=== PATIENT | male | born 1930 | race Hispanic/Latino ===

== ENCOUNTER 2017-04-24 17:13 | Inpatient (IN) | payer MEDICARE, BC ==
[2017-04-24 17:14] VITALS: BMI 39.3
[2017-04-24 18:37] LABS: BASO # 0.02 K/mm3 (0.0-2.0); BASO % 0.2 % (0.0-3.0); EOS # 0.6 (0.0-0.7); EOS % 5.5 % (1.5-5.0); GRAN # 6.56 (1.4-6.5); GRAN % 61.8 % (50.0-68.0); HEMOGLOBIN 13.6 g/dL (14.0-18.0); LYMPH # 2.5 (1.2-3.4); LYMPH % 23.4 % (22.0-35.0); MEAN CELL VOLUME 94.9 fl (80.0-105.0); MEAN CORPUSCULAR HEMOGLOBIN 31.8 pg (25.0-35.0); MEAN CORPUSCULAR HGB CONC 33.5 g/dl (31.0-37.0); MEAN PLATELET VOLUME 9.6 fl (7.0-11.0); MONO % 9.1 % (1.0-6.0); RBC 4.28 10^6/uL (3.5-6.1); WHITE BLOOD COUNT 10.6 10^3/ul (4.5-11.0)
[2017-04-24 18:46] LABS: ALB/GLOB RATIO 1.2 (1.1-1.8); ALBUMIN 3.9 g/dL (3.0-4.8); ALT/SGPT 27 U/L (7-56); AST/SGOT 24 U/L (17-59); BLOOD UREA NITROGEN 20 mg/dL (7-21); CALCIUM 9.7 mg/dL (8.4-10.5); GFR AFRICAN-AMERICAN > 60; GFR NON-AFRICAN AMERICAN > 60; MAGNESIUM 2.1 mg/dL (1.7-2.2)
[2017-04-24 18:51] LABS: INR 1.01 (0.93-1.08); PARTIAL THROMBOPLASTIN TIME 26.6 Seconds (25.1-36.5); PROTHROMBIN TIME 11.5 SECONDS (9.4-12.5)
--- NOTE | 2017-04-24 18:55 | ED PDOC ---
Arrival/HPI - General Chief Complaint: Lower Extremity Problem/Injury Time Seen by Provider: 04/24/17 17:38 Historian: Patient, Family - History of Present Illness Narrative History of Present Illness (Text): 04/24/17 18:45 86yo male with PMHx of COPD and edema present with complaint of b/l LE edema .The son and daughter by the bedside report worsening lower extremity edema for months. The son states patient was given diuretic by the PMD 6months ago, but stopped taking it after a week. also report urinary hesitancy yesterday, but patient is able to urinate today. Patient denies cough, SOB, chest pain, nausea , abdominal pain, diaphoresis, calf pain, any other complaint. Past Medical History - Provider Review Nursing Documentation Reviewed: Yes - Infectious Disease Hx of Infectious Diseases: None - Pulmonary Hx Chronic Obstructive Pulmonary Disease (COPD): Yes - Musculoskeletal/Rheumatological Hx Arthritis: Yes - Psychiatric Hx Psychophysiologic Disorder: No Hx Substance Use: No - Surgical History Hx Orthopedic Surgery: Yes (left hip) - Anesthesia Hx Anesthesia: Yes Hx Anesthesia Reactions: No Family/Social History - Physician Review Nursing Documentation Reviewed: Yes Family/Social History: Unknown Family HX Smoking Status: Never Smoked Hx Alcohol Use: No Hx Substance Use: No Allergies/Home Meds Allergies/Adverse Reactions: Allergies No Known Allergies Allergy (Verified 04/24/17 17:30) Home Medications: Home Meds Medication Instructions Recorded Confirmed No Known Home Med 01/25/15 04/24/17 Review of Systems - Physician Review All systems were reviewed & negative as marked: Yes - Review of Systems Constitutional: Normal Eyes: Normal ENT: Normal Respiratory: Normal Cardiovascular: Edema. absent: Chest Pain, Palpitations, Calf Pain, GAMBOA Gastrointestinal: Normal Genitourinary Male: Normal Musculoskeletal: Normal Skin: Normal Neurological: Normal Endocrine: Normal Hemo/Lymphatic: Normal Psychiatric: Normal Physical Exam Vital Signs Reviewed: Yes Vital Signs Temp Pulse Resp BP Pulse Ox 04/24/17 20:19 142/80 04/24/17 20:11 89 18 142/80 96 04/24/17 17:22 99 F 89 18 143/78 97 Temperature: Afebrile Blood Pressure: Normal Pulse: Regular Respiratory Rate: Normal Appearance: Positive for: Well-Appearing, Non-Toxic, Comfortable Pain Distress: None Mental Status: Positive for: Alert and Oriented X 3 - Systems Exam Head: Present: Atraumatic, Normocephalic Pupils: Present: PERRL Extroacular Muscles: Present: EOMI Conjunctiva: Present: Normal Mouth: Present: Moist Mucous Membranes Neck: Present: Normal Range of Motion Respiratory/Chest: Present: Clear to Auscultation, Good Air Exchange. No: Respiratory Distress, Accessory Muscle Use Cardiovascular: Present: Regular Rate and Rhythm, Normal S1, S2. No: Murmurs Abdomen: Present: Normal Bowel Sounds. No: Tenderness, Distention, Peritoneal Signs Back: Present: Normal Inspection Upper Extremity: Present: Normal Inspection. No: Cyanosis, Edema Lower Extremity: Present: Edema (4+bipedal edema) Neurological: Present: GCS=15, CN II-XII Intact, Speech Normal Skin: Present: Warm, Dry, Normal Color. No: Rashes Psychiatric: Present: Alert, Oriented x 3, Normal Insight, Normal Concentration Medical Decision Making ED Course and Treatment: 04/24/17 20:31 PT in ED for stated history. PT was hemodynmically stable in ED. However signs of cellulitis was noted. Pt's family also mentioned worsening LE edema. Lab was unremarkable Pt is however non complaint and needs admission for IV abx EKG NSR @88bpm Per US tech preliminary result was negative for DVT b/l Case was DW Dr. Caraballo and she accepts pt for admission - Lab Interpretations Lab Results: 04/24/17 18:00 04/24/17 18:00 Lab Results 04/24/17 18:00: PT 11.5, INR 1.01, APTT 26.6 04/24/17 18:00: Sodium 142, Potassium 3.9, Chloride 106, Carbon Dioxide 26, Anion Gap 15, BUN 20, Creatinine 1.0, Est GFR ( Amer) > 60, Est GFR (Non- Af Amer) > 60, Random Glucose 94, Calcium 9.7, Magnesium 2.1, Total Bilirubin 0.6, AST 24, ALT 27, Alkaline Phosphatase 75, Lactate Dehydrogenase 461, Total Creatine Kinase 46, Troponin I < 0.01, NT-Pro-B Natriuret Pep 159, Total Protein 7.1, Albumin 3.9, Globulin 3.2, Albumin/Globulin Ratio 1.2 04/24/17 18:00: Urine Color Yellow, Urine Appearance Slight-cloudy, Urine pH 6.0 , Ur Specific [place] >= 1.030, Urine Protein 30 H, Urine Glucose (UA) Negative , Urine Ketones Trace H, Urine Blood Moderate H, Urine Nitrate Negative, Urine Bilirubin Negative, Urine Urobilinogen 0.2, Ur Leukocyte Esterase Negative, Urine RBC 1 - 3, Urine WBC Negative, Ur Epithelial Cells None, Urine Other Mucus 04/24/17 18:00: WBC 10.6 D, RBC 4.28, Hgb 13.6 L, Hct 40.6 L, MCV 94.9, MCH 31.8, MCHC 33.5, RDW 14.0, Plt Count 224, MPV 9.6, Gran % 61.8, Lymph % (Auto) 23.4, Mayes % (Auto) 9.1 H, Eos % (Auto) 5.5 H, Baso % (Auto) 0.2, Gran # 6.56 H , Lymph # (Auto) 2.5, Mayes # (Auto) 1.0 H, Eos # (Auto) 0.6, Baso # (Auto) 0.02 - RAD Interpretation Radiology Orders: 04/24/17 17:38 DUPLEX LOWER EXTRM VEIN BILAT [US] Stat 04/24/17 18:15 CHEST TWO VIEWS (PA/LAT) [RAD] Stat - Medication Orders Current Medication Orders: Discontinued Medications Furosemide (Lasix) 40 mg IVP STAT STA Stop: 04/24/17 19:41 Last Admin: 04/24/17 20:19 Dose: 40 mg MAR Blood Pressure Document 04/24/17 20:19 SF (Rec: 04/24/17 20:19 [id number]) Blood Pressure Blood Pressure (100/60-150/90 mm Hg) 142/80 IVP Administration Document 04/24/17 20:19 SF (Rec: 04/24/17 20:19 SF [id number]) Charges for Administration # of IVP Administrations 1 Piperacillin Sod/Tazobactam Sod (Zosyn 3.375 In Ns 100ml) 100 mls @ 200 mls/hr IVPB STAT STA PRN Reason: Protocol Stop: 04/24/17 20:07 Last Admin: 04/24/17 20:13 Dose: 200 mls/hr eMAR Start Stop Document 04/24/17 20:13 SF (Rec: 04/24/17 20:19 [id number]) Intravenous Solution Start Date 04/24/17 Start Time 20:18 End Date 04/24/17 End time 20:48 Total Infusion Time 30 Disposition/Present on Arrival - Present on Arrival Any Indicators Present on Arrival: No History of DVT/PE: No History of Uncontrolled Diabetes: No Urinary Catheter: No History of Decub. Ulcer: No History Surgical Site Infection Following: None - Disposition Have Diagnosis and Disposition been Completed?: Yes Diagnosis: Cellulitis, Edema Disposition: HOSPITALIZED Disposition Time: 19:40 Patient Problems: Current Active Problems Problem Status Onset Cellulitis Acute Edema Acute Condition: FAIR
[2017-04-24 18:58] LABS: B-TYPE NATRIURETIC PEPTIDE 159 pg/mL (0-450); TROPONIN I < 0.01 ng/mL
--- NOTE | 2017-04-24 19:08 | US ---
HISTORY: Leg pain and swelling. Evaluate for DVT PHYSICIAN(S): Ruben Brothers MD. TECHNIQUE: Duplex sonography and color-flow Doppler with graded compression were used to evaluate the deep venous systems of both lower extremities. The exam is somewhat limited by edema. FINDINGS: The visualized deep venous systems of both lower extremities are sonographically normal and compressible. Normal wave forms and augmentation are seen. There is no sonographic evidence for deep venous thrombosis in the visualized segments of both lower extremities. IMPRESSION: No sonographic evidence for deep venous thrombosis in the visualized segments of both lower extremities.
[2017-04-24 19:11] LABS: URINE BILIRUBIN NEGATIVE (NEGATIVE); URINE BLOOD MODERATE (NEGATIVE); URINE GLUCOSE (UA) NEGATIVE (NEGATIVE); URINE LEUKOCYTE ESTERASE NEGATIVE Leu/uL (NEGATIVE); URINE NITRATE NEGATIVE (NEGATIVE); URINE PROTEIN 30 mg/dL (<30 mg/dL); URINE UROBILINOGEN 0.2 E.U./dL (<1 E.U./dL)
[2017-04-24 19:16] LABS: URINE APPEARANCE SLIGHT-CLOUDY (CLEAR); URINE COLOR YELLOW (YELLOW)
[2017-04-24] MEDS ORDERED: Piperacillin/Tazobact 3.375 gm 100 ML IVPB STA (19:38)
[2017-04-24 19:45] LABS: URINE WBC NEGATIVE /hpf (0-6)
[2017-04-24] MEDS: Vancomycin 1gm in NS 250ml 1 GM/250 ML BAG IVPB SCH (22:18)
[2017-04-25 05:08] VITALS: RESP 20
--- NOTE | 2017-04-25 07:21 | HP ---
HISTORY OF PRESENT ILLNESS: The patient is an 86-year-old brought in by the family because of increasing bilateral leg swelling. According to family, he always has leg swelling. This is going on for a couple of months. He went to primary care doctor who gave water pill, but he has not been very compliant. He never went back to the doctor again. Recently, they noted legs are more swollen and red. They brought to emergency room for further evaluation. There is no history of fever or chills. No history of cough or congestion. No chest pain, no shortness of breath. No nausea or vomiting. No diarrhea. PAST MEDICAL HISTORY: Significant for: 1. COPD. 2. History of generalized osteoarthritis. 3. Some difficulty walking. PAST SURGICAL HISTORY: Significant for left hip replacement. ALLERGIES: HE IS NOT ALLERGIC TO ANY MEDICATION. MEDICATIONS AT HOME: He used to be on diuretic, but he stopped taking on his own. REVIEW OF SYSTEMS: Significant for generalized weakness, generalized aches and pain, and bilateral leg swelling and redness. PHYSICAL EXAMINATION GENERAL: He is awake, alert and oriented, able to communicate. VITAL SIGNS: He is afebrile, pulse 89, respirations 18, blood pressure 142/80. LUNGS: Bilateral good airflow. No rhonchi or crackle. HEART: S1 and S2 audible. ABDOMEN: Soft, obese, nontender. No rebound. No guarding. NEUROLOGIC: The patient is awake and alert, able to communicate. EXTREMITIES: Bilateral leg, +2 edema with erythema. LABORATORY DATA: WBC is 10.6, hemoglobin 13.6, hematocrit 40.6, platelet 224. PT 11.5, INR 1.01, PTT 36.6. Chemistry: Sodium 142, potassium 3.9, chloride 106, CO2 of 26, BUN 20, creatinine 1.0. Blood sugar . LFTs are within normal limits. Troponin is 0.01. Urine shows moderate blood, negative leukocytes, positive protein. Bilateral leg Doppler, there is no sonographic evidence of DVT. He had echocardiogram done in 2014 that showed mild concentric LVH. ASSESSMENT: 1. Bilateral leg edema and bilateral leg cellulitis. 2. History of chronic obstructive pulmonary disease. 3. Hypertension. 4. Hyperlipidemia. PLAN: We will start the patient on diuretic, start him on antibiotic, and start him on DVT prophylaxis. We will follow up CBC and CMP in a.m. Wallace Caraballo MD
[2017-04-25 07:25] LABS: ALB/GLOB RATIO 1.2 (1.1-1.8); ALBUMIN 3.3 g/dL (3.0-4.8); ALT/SGPT 28 U/L (7-56); AST/SGOT 20 U/L (17-59); BLOOD UREA NITROGEN 20 mg/dL (7-21); GFR AFRICAN-AMERICAN > 60; GFR NON-AFRICAN AMERICAN > 60; URIC ACID 4.4 mg/dL (3.5-8.5)
[2017-04-25 07:40] LABS: FREE T4 0.88 ng/dL (0.78-2.19)
--- NOTE | 2017-04-25 08:12 | RAD ---
HISTORY: COMPARISON: 07/24/2016. TECHNIQUE: Chest PA and lateral FINDINGS: LINES AND TUBES: None. LUNG AND PLEURA: The lungs are well inflated and clear. There is left basilar scarring. HEART AND MEDIASTINUM: The heart is not enlarged. The hilar and mediastinal contours are within normal limits. SKELETAL STRUCTURES: The bony structures are within normal limits for the patient's age. VISUALIZED UPPER ABDOMEN: Normal. OTHER FINDINGS: None. IMPRESSION: No active pulmonary disease.
[2017-04-25] MEDS: Enoxaparin 30 mg Syringe SC SCH (09:52)
[2017-04-25] MEDS: Vancomycin 1gm in NS 250ml 1 GM/250 ML BAG IVPB SCH ×2 (10:05→21:11)
--- NOTE | 2017-04-25 10:10 | CARD ---
APPROVED REPORT EKG Measurement Heart [id number] <Conclusion> Normal sinus rhythm with sinus arrhythmia PVC. PAC.
[2017-04-25] MEDS: cefTRIAXone 1 gm 1 GM/100 ML BAG IVPB SCH (10:22)
[2017-04-25] MEDS: metOLazone 2.5 MG TAB PO SCH (14:19)
--- NOTE | 2017-04-25 14:20 | PN ---
DATE: SUBJECTIVE: The patient is 86 years old, seen and examined, very pleasant, not in any distress, has bilateral leg swelling. He has a rash on his left schaffer, not itchy. No nausea or vomiting. No diarrhea. PHYSICAL EXAMINATION: VITAL SIGNS: He is afebrile, pulse 84, respiration 20, blood pressure 145/73. LUNGS: Bilateral good airflow. No rhonchi or crackle. HEART: S1, S2 audible. ABDOMEN: Soft, nontender. No rebound. Obese. No hepatosplenomegaly. NEUROLOGIC: The patient is awake and alert, able to communicate. LABORATORY DATA: TSH is 4.76. Otherwise, sodium is 144, potassium 4.1, chloride 107, CO2 of 29, BUN 20, creatinine 1.1, blood sugar of 90. LFTs are within normal limits. Urinalysis is unremarkable. ASSESSMENT: 1. Bilateral leg cellulitis. 2. Bilateral leg edema, bilateral leg Doppler negative for deep venous thrombosis. PLAN: We will get echocardiogram to see LV function. Continue him on IV diuretics. Continue him on antibiotics. We will follow up his electrolyte in a.m. Wallace Caraballo MD
[2017-04-26 08:48] LABS: ALB/GLOB RATIO 1.2 (1.1-1.8); ALBUMIN 3.4 g/dL (3.0-4.8); ALT/SGPT 30 U/L (7-56); AST/SGOT 22 U/L (17-59); BLOOD UREA NITROGEN 23 mg/dL (7-21); CALCIUM 9.3 mg/dL (8.4-10.5); GFR AFRICAN-AMERICAN > 60; GFR NON-AFRICAN AMERICAN > 60
[2017-04-26] MEDS: cefTRIAXone 1 gm 1 GM/100 ML BAG IVPB SCH (09:24)
[2017-04-26] MEDS: metOLazone 2.5 MG TAB PO SCH (09:24)
[2017-04-26] MEDS: Enoxaparin 30 mg Syringe SC SCH (09:25)
[2017-04-26] MEDS: Vancomycin 1gm in NS 250ml 1 GM/250 ML BAG IVPB SCH ×2 (09:25→22:03)
[2017-04-26] MEDS: Potassium Chloride 20 mEq ER Tab PO SCH (13:23)
--- NOTE | 2017-04-26 15:22 | PN ---
DATE: SUBJECTIVE: The patient is 86 years old seen and examined, lying in bed, seems to be comfortable. No chest pain, no shortness of breath. No nausea, vomiting, or diarrhea. OBJECTIVE: VITAL SIGNS: He is afebrile, pulse 88, respirations 20, and blood pressure 129/74. LUNGS: Bilateral good air flow. No rhonchi or crackle. HEART: S1 and S2 audible. ABDOMEN: Soft, obese, and nontender. No rebound, no guarding. NEUROLOGIC: The patient is awake and alert, able to communicate, ambulatory. LABORATORY DATA: Sodium 143, potassium 3.2, chloride 102, CO2 of 33. BUN 23, creatinine 1.1. Blood sugar of 99. TSH is 4.76. Echocardiogram is pending. Bilateral leg Doppler is unremarkable. ASSESSMENT: 1. Bilateral leg cellulitis. 2. Morbid obesity. 3. Hypertension. 4. Hypothyroidism. PLAN: We will continue the patient on IV diuretics. We will continue on antibiotics and apply Stefano bandage. Keep his leg elevated and start him on Synthroid and follow up his electrolytes. Potassium has been supplemented. We will follow up this patient in the a.m. Wallace Caraballo MD
--- NOTE | 2017-04-26 16:27 | CARD ---
APPROVED REPORT EXAM: Two-dimensional and M-mode echocardiogram with Doppler and color Doppler. INDICATION LVH Mitral Valve MV E Dcvuocda34.5cm/sMV A Raxqtvid686.0cm/sE/A ratio0.5 TDI Lateral E' Peak V7.80cm/sMedial E' Peak V8.38cm/sE/Lateral E'6.7 E/Medial E'6.3 LEFT VENTRICLE The left ventricle is normal size. There is mild concentric left ventricular hypertrophy. The left ventricular function is normal.EF-55% There is normal LV segmental wall motion. Transmitral Doppler flow pattern is Grade III-reversible restrictive diastolic dysfunction. No left ventricle thrombus noted on this study. There is no ventricular septal defect visualized. There is no left ventricular aneurysm. There is no mass noted in the left ventricle. RIGHT VENTRICLE The right ventricle is normal size. There is normal right ventricular wall thickness. The right ventricular systolic function is normal. ATRIA The left atrium is mildly dilated. The right atrium size is normal. The interatrial septum is intact with no evidence for an atrial septal defect. AORTIC VALVE The aortic valve is not well visualized. MITRAL VALVE The mitral valve is thickened but opens well. Mitral regurgitation is trace. There is no mitral valve stenosis. There is no evidence of mitral valve prolapse. TRICUSPID VALVE The tricuspid valve leaflets are thickened , but open well. There is trace tricuspid regurgitation. There is no tricuspid valve stenosis. There is no tricuspid valve prolapse or vegetation. PULMONIC VALVE The pulmonic valve is not well visualized. GREAT VESSELS The aortic root is not well visualized. The ascending aorta is not well seen. The pulmonary is not well visualized. The IVC was not visualized. PERICARDIAL EFFUSION There is no pleural effusion. There is no pericardial effusion. <Conclusion> TDS, poor sonic Window, pt wassupine at the time of study. The left ventricular function is normal.EF-55% The aortic valve is not well visualized. Mitral regurgitation is trace. There is trace tricuspid regurgitation.
[2017-04-27] MEDS: Levothyroxine 25 MCG TAB PO SCH (06:15)
[2017-04-27 07:00] LABS: BASO # 0.02 K/mm3 (0.0-2.0); BASO % 0.3 % (0.0-3.0); EOS # 0.5 (0.0-0.7); EOS % 6.6 % (1.5-5.0); GRAN # 3.76 (1.4-6.5); GRAN % 54.1 % (50.0-68.0); HEMOGLOBIN 11.9 g/dL (14.0-18.0); LYMPH % 29.3 % (22.0-35.0); MEAN CELL VOLUME 94.1 fl (80.0-105.0); MEAN CORPUSCULAR HEMOGLOBIN 30.6 pg (25.0-35.0); MEAN CORPUSCULAR HGB CONC 32.5 g/dl (31.0-37.0); MEAN PLATELET VOLUME 9.8 fl (7.0-11.0); MONO # 0.7 (0.1-0.6); MONO % 9.7 % (1.0-6.0); RBC 3.89 10^6/uL (3.5-6.1); RED CELL DISTRIBUTION WIDTH 13.9 % (11.5-14.5); WHITE BLOOD COUNT 6.9 10^3/ul (4.5-11.0)
[2017-04-27 07:08] LABS: ALB/GLOB RATIO 1.2 (1.1-1.8); ALBUMIN 3.2 g/dL (3.0-4.8); ALT/SGPT 32 U/L (7-56); AST/SGOT 21 U/L (17-59); BLOOD UREA NITROGEN 23 mg/dL (7-21); GFR AFRICAN-AMERICAN > 60; GFR NON-AFRICAN AMERICAN > 60
[2017-04-27] MEDS: Potassium Chloride 20 mEq ER Tab PO SCH (08:36)
[2017-04-27] MEDS: Enoxaparin 30 mg Syringe SC SCH (10:42)
[2017-04-27] MEDS: Vancomycin 1gm in NS 250ml 1 GM/250 ML BAG IVPB SCH ×2 (10:43→21:13)
[2017-04-27] MEDS: metOLazone 2.5 MG TAB PO SCH (10:44)
[2017-04-27] MEDS: cefTRIAXone 1 gm 1 GM/100 ML BAG IVPB SCH (10:45)
--- NOTE | 2017-04-27 15:51 | PN ---
DATE: SUBJECTIVE: The patient is 86 years old, seen and examined, lying in bed, seems to be comfortable. No nausea or vomiting. No diarrhea. Eating and tolerating. PHYSICAL EXAMINATION: VITAL SIGNS: He is afebrile, pulse 83, respirations 20, blood pressure 131/67. LUNGS: Bilateral fair airflow. No rhonchi or crackle. HEART: S1 and S2 audible. ABDOMEN: Soft. Nontender. Obese. No hepatosplenomegaly. NEUROLOGIC: He is awake, alert, oriented, able to communicate, ambulatory. LABORATORY EXAM: His sodium 142, potassium 3.4, chloride 103, CO2 of 31, BUN 23, creatinine 1.0, blood sugar of 94. LFTs are within normal limit. TSH is 4.76. ASSESSMENT: 1. Bilateral leg edema. 2. Morbid obesity. 3. Hypothyroidism. PLAN: We will continue the patient on diuretic. Continue to place FRANKIE bandage. Continue Rocephin and levothyroxine. We will reevaluate the patient in the a.m. Wallace Caraballo MD
[2017-04-28] MEDS: Levothyroxine 25 MCG TAB PO SCH (06:05)
[2017-04-28 08:04] VITALS: BP 130/74; PULSE 88; TEMP 98.8; O2SAT 97
[2017-04-28] MEDS: Potassium Chloride 20 mEq ER Tab PO SCH (08:15)
[2017-04-28] MEDS: metOLazone 2.5 MG TAB PO SCH (09:39)
[2017-04-28] MEDS: Enoxaparin 30 mg Syringe SC SCH (09:40)
[2017-04-28] MEDS: cefTRIAXone 1 gm 1 GM/100 ML BAG IVPB SCH (09:40)
[2017-04-28] MEDS: Vancomycin 1gm in NS 250ml 1 GM/250 ML BAG IVPB SCH (09:42)
[2017-04-28] MEDS ORDERED: Influenza Vaccine 60 mcg/0.5 mL SYR (4YR UP) IM ONE (12:49)
[2017-04-28] MEDS ORDERED: Pneumococcal 23-Valent Vaccine IM ONE (12:51)
--- NOTE | 2017-04-29 18:14 | DS ---
HOSPITAL COURSE: Patient is 86 years old who came in with bilateral leg swelling, right schaffer rash. Mild shortness of breath when walking. He was admitted for bilateral leg cellulitis. Had echocardiogram done, unremarkable. He had been on IV antibiotics and Lasix with some response. PHYSICAL EXAMINATION GENERAL: Today, he is awake, alert, oriented, communicative. VITAL SIGNS: He is afebrile. Pulse , respirations 20, blood pressure 130/74. LUNGS: Bilateral good airflow. No rhonchi or crackle. HEART: S1 and S2 audible. ABDOMEN: Soft, obese, nontender. No rebound. No guarding. NEUROLOGIC: He is awake, alert, oriented, communicative. LABORATORY DATA: There is no new lab available today. ASSESSMENT 1. Bilateral leg cellulitis, improving. 2. Bilateral leg edema. 3. Hypothyroidism. 4. Hypertension. PLAN: Patient is being transferred to TCU where he will receive physical therapy. We will continue his IV antibiotics and IV diuretic. We will follow up with his chemistry intermittently. Wallace Caraballo MD
== END 2017-04-28 14:35 | DRG 603 ==
LOC: ED 17:13 → ERH 19:39 → 5RNO 04-25 01:53
PROVIDERS: ADMIT Internal Medicine; ATTEND Internal Medicine
PROC: 3E0234Z Introduction of Serum, Toxoid and Vaccine into Muscle, Percutaneous Approach (ICD-10-PCS; principal; 2017-04-28)
DX: L03.115 Cellulitis of right lower limb (principal); E66.01 Morbid (severe) obesity due to excess calories; J44.9 Chronic obstructive pulmonary disease, unspecified; E03.9 Hypothyroidism, unspecified; E78.5 Hyperlipidemia, unspecified; L03.116 Cellulitis of left lower limb; I10 Essential (primary) hypertension; M15.9 Polyosteoarthritis, unspecified; Z96.642 Presence of left artificial hip joint; Z23 Encounter for immunization; Z68.39 Body mass index [BMI] 39.0-39.9, adult

== ENCOUNTER 2017-04-28 14:44 | Inpatient (IN) | payer OTHER, BC ==
[2017-04-28 15:50] VITALS: BMI 38.8
[2017-04-28] MEDS: Vancomycin 1gm in NS 250ml 1 GM/250 ML BAG IVPB SCH (17:53)
[2017-04-29] MEDS: cefTRIAXone 1 gm 1 GM/100 ML BAG IVPB SCH (05:05)
[2017-04-29] MEDS: Levothyroxine 25 MCG TAB PO SCH (05:06)
[2017-04-29] MEDS: Vancomycin 1gm in NS 250ml 1 GM/250 ML BAG IVPB SCH ×2 (05:06→17:29)
[2017-04-29 07:43] LABS: ALB/GLOB RATIO 1.2 (1.1-1.8); ALBUMIN 3.8 g/dL (3.0-4.8); ALT/SGPT 38 U/L (7-56); AST/SGOT 30 U/L (17-59); BLOOD UREA NITROGEN 33 mg/dL (7-21); CALCIUM 9.6 mg/dL (8.4-10.5); GFR AFRICAN-AMERICAN > 60; GFR NON-AFRICAN AMERICAN 58
[2017-04-29] MEDS: Potassium Chloride 20 mEq ER Tab PO SCH (08:08)
[2017-04-29] MEDS: metOLazone 2.5 MG TAB PO SCH (09:44)
[2017-04-29] MEDS ORDERED: Enoxaparin 30 mg Syringe SC SCH (10:00)
--- NOTE | 2017-04-29 12:07 | CP.PCM.CON ---
<Baldev Amado - Last Filed: 04/29/17 13:50> History of Present Illness - History of Present Illness History of Present Illness: Podiatry Consult Note- Dr. Tucker 86 y.o male with hx of LE swelling was consulted for lower extremity edema and cellulitis. Patient is seen resting comfortably in bed, in NAD, and AA0x3. Lower extremity FRANKIE compression is seen- c/d/i with no strikethrough. Patient reports that about a week ago he noted legs swelling in both legs. He reports the the swelling was a gradual process. At the moment, patient reports there is no pain. He denies acute overnight events. Patient denies n/v/sob/cp/chills or f. Denies calf pain. PMH: denies any, LE swelling PSH: left total hip replacement SH: denies smoking, drinking or illicit drug use ALL: NKDA MEDS: see medication list FH: unknown Past Patient History - Infectious Disease Hx of Infectious Diseases: None - Past Social History Smoking Status: Never Smoked - PULMONARY Hx Chronic Obstructive Pulmonary Disease (COPD): Yes - MUSCULOSKELETAL/RHEUMATOLOGICAL Hx Arthritis: Yes - PSYCHIATRIC Hx Psychophysiologic Disorder: No Hx Substance Use: No - SURGICAL HISTORY Hx Orthopedic Surgery: Yes (left hip surgery) - ANESTHESIA Hx Anesthesia: Yes Hx Anesthesia Reactions: No Meds Allergies/Adverse Reactions: Allergies Allergy/AdvReac Type Severity Reaction Status Date / Time No Known Allergies Allergy Verified 04/28/17 16:46 - Medications Medications: Current Medications Enoxaparin Sodium (Lovenox) 30 mg SC DAILY ASHELY PRN Reason: Protocol Last Admin: 04/29/17 09:44 Dose: 30 mg Fluocinonide (Lidex 0.05% Cream) 0 gm TOP BID ASHELY PRN Reason: Protocol Last Admin: 04/29/17 09:43 Dose: 1 applic Furosemide (Lasix) 40 mg IVP 1000,1800 ASHELY PRN Reason: Protocol Last Admin: 04/29/17 09:48 Dose: 40 mg Ceftriaxone Sodium (Rocephin 1 Gram Ivpb) 1 gm in 100 mls @ 100 mls/hr IVPB 0600 ASHELY PRN Reason: Protocol Last Admin: 04/29/17 05:05 Dose: 100 mls/hr Vancomycin HCl (Vancomycin 1gm) 1 gm in 250 mls @ 167 mls/hr IVPB 0600,1800 ASHELY PRN Reason: Protocol Last Admin: 04/29/17 05:06 Dose: 167 mls/hr Levothyroxine Sodium (Synthroid) 25 mcg PO 0600 ASHELY PRN Reason: Protocol Last Admin: 04/29/17 05:06 Dose: 25 mcg Metolazone (Zaroxolyn) 2.5 mg PO DAILY ASHELY PRN Reason: Protocol Last Admin: 04/29/17 09:44 Dose: 2.5 mg Potassium Chloride (K-Dur 20 Meq Er Tab) 20 meq PO 0800 ASHELY PRN Reason: Protocol Last Admin: 04/29/17 08:08 Dose: 20 meq Physical Exam - Constitutional Appears: Well, Non-toxic, No Acute Distress - Extremities Exam Extremities exam: Negative for: calf tenderness Additional comments: Vasc: DP and PT palpable, LE pitting edema 3+, temperature is WNL warm to cool from proximal knees to distal toes, CFT < 3 seconds to digits bilaterally Ortho: pain and tenderness with palpation to the entire LE, MM is 5/5 in all four compartments: dorsiflexion, inversion, eversion, and plantarflexion, no calf tenderness of palpation Neuro: protective and gross sensation intact Derm: Mild erythema noted to the entire LE bilaterally, red hyperpigmentation noted to the R anterior leg secondary to abrasion 40 years ago, no open ulcerationed noted to the bilaterally LE, drainage or weeping noted to the LE - Neurological Exam Neurological exam: Alert, Oriented x3 - Psychiatric Exam Psychiatric exam: Normal Affect, Normal Mood Results - Vital Signs Recent Vital Signs: Last Vital Signs Temp 98.1 F 04/28/17 17:40 Pulse 78 04/28/17 17:40 Resp 18 04/28/17 17:40 BP 131/89 04/29/17 09:48 Pulse Ox 96 04/28/17 17:40 - Labs Result Diagrams: 04/29/17 06:30 Labs: Laboratory Results - last 24 hr 04/29/17 06:30 Sodium 143 Potassium 3.3 L Chloride 96 L Carbon Dioxide 39 H Anion Gap 11 BUN 33 H Creatinine 1.2 Est GFR ( Amer) > 60 Est GFR (Non-Af Amer) 58 Random Glucose 102 Calcium 9.6 Total Bilirubin 0.5 AST 30 ALT 38 Alkaline Phosphatase 67 Total Protein 7.1 Albumin 3.8 Globulin 3.3 Albumin/Globulin Ratio 1.2 Assessment & Plan - Assessment and Plan (Free Text) Assessment: 86 y.o male with hx of LE swelling was consulted for lower extremity edema and cellulitis. Plan: -Patient examined and evaluated -Vitals, labs, chart reviewed- 6.9 on 04/27/17 absent leukocytosis and afebrile -Discussed plan in detail with attending Dr. Tucker -LE cleansed with saline solution, pat dry with gauze, and compression with FRANKIE -c/w iv abx per primary -Podiatry will continue to follow while in house -Thank you for allowing us to take part of patient's care <Tez Tucker - Last Filed: 04/29/17 16:22> Meds - Medications Medications: Current Medications Enoxaparin Sodium (Lovenox) 30 mg SC DAILY ASHELY PRN Reason: Protocol Last Admin: 04/29/17 09:44 Dose: 30 mg Fluocinonide (Lidex 0.05% Cream) 0 gm TOP BID ASHELY PRN Reason: Protocol Last Admin: 04/29/17 09:43 Dose: 1 applic Furosemide (Lasix) 40 mg IVP 1000,1800 ASHELY PRN Reason: Protocol Last Admin: 04/29/17 09:48 Dose: 40 mg Ceftriaxone Sodium (Rocephin 1 Gram Ivpb) 1 gm in 100 mls @ 100 mls/hr IVPB 0600 ASHELY PRN Reason: Protocol Last Admin: 04/29/17 05:05 Dose: 100 mls/hr Vancomycin HCl (Vancomycin 1gm) 1 gm in 250 mls @ 167 mls/hr IVPB 0600,1800 ASHELY PRN Reason: Protocol Last Admin: 04/29/17 05:06 Dose: 167 mls/hr Levothyroxine Sodium (Synthroid) 25 mcg PO 0600 ASHELY PRN Reason: Protocol Last Admin: 04/29/17 05:06 Dose: 25 mcg Metolazone (Zaroxolyn) 2.5 mg PO DAILY ASHELY PRN Reason: Protocol Last Admin: 04/29/17 09:44 Dose: 2.5 mg Potassium Chloride (K-Dur 20 Meq Er Tab) 20 meq PO 0800 ASHELY PRN Reason: Protocol Last Admin: 04/29/17 08:08 Dose: 20 meq Results - Vital Signs Recent Vital Signs: Last Vital Signs Temp 98.1 F 04/28/17 17:40 Pulse 78 04/28/17 17:40 Resp 18 04/28/17 17:40 BP 131/89 04/29/17 09:48 Pulse Ox 96 04/28/17 17:40 - Labs Result Diagrams: 04/29/17 06:30 Labs: Laboratory Results - last 24 hr 04/29/17 06:30 Sodium 143 Potassium 3.3 L Chloride 96 L Carbon Dioxide 39 H Anion Gap 11 BUN 33 H Creatinine 1.2 Est GFR ( Amer) > 60 Est GFR (Non-Af Amer) 58 Random Glucose 102 Calcium 9.6 Total Bilirubin 0.5 AST 30 ALT 38 Alkaline Phosphatase 67 Total Protein 7.1 Albumin 3.8 Globulin 3.3 Albumin/Globulin Ratio 1.2 Attending/Attestation - Attestation I have personally seen and examined this patient.: Yes I have fully participated in the care of the patient.: Yes I have reviewed all pertinent clinical information: Yes
--- NOTE | 2017-04-29 20:53 | HP ---
HISTORY OF PRESENT ILLNESS: The patient is 86 years old, seen and examined. He came in initially with bilateral leg swelling, right leg rash, has been on IV antibiotic and IV diuretic, seems to be doing well. He has been having difficulty walking, so he was transferred to TCU for rehab. PAST MEDICAL HISTORY: He has no significant past medical history except for hypothyroidism and borderline hypertension. ALLERGIES: NOT ALLERGIC TO ANY MEDICATION. MEDICATIONS AT HOME: He was not talking any medicine at home. PHYSICAL EXAMINATION GENERAL: He is awake, alert, oriented, communicative. VITAL SIGNS: He is afebrile, pulse 70, respiration 18, blood pressure 131/89. LUNGS: Bilateral good airflow. No rhonchi or crackle. HEART: S1, S2 audible. ABDOMEN: Soft, obese, nontender. No rebound. No guarding. NEUROLOGIC: He is awake, alert, oriented, able to communicate. LABORATORY DATA: There is no new lab available today. ASSESSMENT: 1. Obesity. 2. Bilateral leg edema. 3. Bilateral leg cellulitis. 4. Hypothyroidism. PLAN: MAR reviewed. We will continue the patient on current medication. We will follow up electrolyte . Wallace Caraballo MD
[2017-04-30] MEDS: Enoxaparin 30 mg Syringe SC SCH (05:24)
[2017-04-30] MEDS: cefTRIAXone 1 gm 1 GM/100 ML BAG IVPB SCH (05:24)
[2017-04-30] MEDS: Vancomycin 1gm in NS 250ml 1 GM/250 ML BAG IVPB SCH (05:25)
[2017-04-30] MEDS: Levothyroxine 25 MCG TAB PO SCH (05:25)
[2017-04-30] MEDS: Potassium Chloride 20 mEq ER Tab PO SCH (08:32)
[2017-04-30] MEDS: metOLazone 2.5 MG TAB PO SCH (10:51)
--- NOTE | 2017-04-30 13:05 | PN ---
DATE: SUBJECTIVE: Patient is 86-year-old, seen and examined, sitting in chair, seems to be comfortable. No nausea, vomiting. No diarrhea. OBJECTIVE: VITAL SIGNS: Patient is afebrile, pulse 97, respirations 20, blood pressure 126/73. LUNGS: Bilateral good airflow. No rhonchi or crackle. HEART: S1 and S2 audible. No murmur. ABDOMEN: Soft, obese, nontender. No rebound, no guarding. NEUROLOGICAL: Patient is awake, alert, oriented, able to communicate. EXTREMITIES: Bilateral leg +1 edema. LABORATORY DATA: Sodium 143, potassium 3.3, chloride 96, CO2 39, BUN 33, creatinine 1.2. ASSESSMENT: 1. Bilateral leg cellulitis, seems to be improving. 2. Bilateral leg edema. 3. Hypothyroidism. 4. Morbid obesity. PLAN: Continue patient on current antibiotics. Continue on diuretics. Encourage physical therapy. Continue on DVT prophylaxis. Wallace Caraballo MD
[2017-04-30] MEDS: Cefpodoxime (Vantin) 100 mg Tab PO SCH (21:15)
[2017-05-01] MEDS: Levothyroxine 25 MCG TAB PO SCH (06:04)
[2017-05-01] MEDS: Enoxaparin 30 mg Syringe SC SCH (06:04)
[2017-05-01] MEDS: Potassium Chloride 20 mEq ER Tab PO SCH (09:18)
[2017-05-01] MEDS: metOLazone 2.5 MG TAB PO SCH (09:19)
[2017-05-01] MEDS: Cefpodoxime (Vantin) 100 mg Tab PO SCH ×2 (09:19→21:24)
[2017-05-01] MEDS ORDERED: Cefpodoxime (Vantin) 100 mg Tab PO ONE (13:46)
--- NOTE | 2017-05-01 16:23 | CP.PCM.PN ---
Subjective - Date & Time of Evaluation Date of Evaluation: 05/01/17 Time of Evaluation: 16:20 - Subjective Subjective: Podiatry Consult Note- Dr. Buenrostro 86 y.o male with hx of LE swelling was consulted for lower extremity edema and cellulitis. Patient is seen resting comfortably in bed, in NAD, and AA0x3. Lower extremity FRANKIE compression is seen- c/d/i with no strikethrough. Patient denies n/v/sob/cp/chills or f. Patient has no pedal complaints at this time Objective - Vital Signs/Intake and Output Vital Signs (last 24 hours): Temp Pulse Resp BP Pulse Ox 98.2 F 95 H 18 135/72 94 L 05/01/17 11:41 05/01/17 11:41 05/01/17 11:41 05/01/17 11:41 05/01/17 11:41 - Medications Medications: Current Medications Cefpodoxime Proxetil (Vantin) 100 mg PO Q12 ASHELY PRN Reason: Protocol Last Admin: 05/01/17 09:19 Dose: 100 mg Enoxaparin Sodium (Lovenox) 30 mg SC 0600 ASHELY PRN Reason: Protocol Last Admin: 05/01/17 06:04 Dose: 30 mg Fluocinonide (Lidex 0.05% Cream) 0 gm TOP BID ASHELY PRN Reason: Protocol Last Admin: 05/01/17 09:19 Dose: 1 applic Furosemide (Lasix) 40 mg PO BID ASHELY PRN Reason: Protocol Last Admin: 05/01/17 09:18 Dose: 40 mg Levothyroxine Sodium (Synthroid) 25 mcg PO 0600 ASHELY PRN Reason: Protocol Last Admin: 05/01/17 06:04 Dose: 25 mcg Metolazone (Zaroxolyn) 2.5 mg PO DAILY ASHELY PRN Reason: Protocol Last Admin: 05/01/17 09:19 Dose: 2.5 mg Potassium Chloride (K-Dur 20 Meq Er Tab) 20 meq PO 0800 ASHELY PRN Reason: Protocol Last Admin: 05/01/17 09:18 Dose: 20 meq - Labs Labs: 04/29/17 06:30 - Constitutional Appears: Well, Non-toxic, No Acute Distress - Extremities Exam Extremities Exam: absent: Calf Tenderness Additional comments: Vasc: DP and PT palpable, LE pitting edema 3+, temperature is WNL warm to cool from proximal knees to distal toes, CFT < 3 seconds to digits bilaterally Ortho: pain and tenderness with palpation to the entire LE, MM is 5/5 in all four compartments: dorsiflexion, inversion, eversion, and plantarflexion, no calf tenderness of palpation Neuro: protective and gross sensation intact Derm: Mild erythema noted to the entire LE bilaterally, red hyperpigmentation noted to the R anterior leg secondary to abrasion 40 years ago, no open ulcerationed noted to the bilaterally LE, drainage or weeping noted to the LE - Psychiatric Exam Psychiatric exam: Normal Affect, Normal Mood Assessment and Plan - Assessment and Plan (Free Text) Assessment: 86 y.o male with hx of LE swelling with lower extremity edema and cellulitis- resolving Plan: -Patient examined and evaluated -Vitals, labs, chart reviewed-leukocytosis and afebrile -Discussed plan in detail with attending Dr. Buenrostro -LE cleansed with saline solution, pat dry with gauze, and compression with FRANKIE -c/w iv abx per primary -Patient instructed to keep legs elevate while in bed with 2-3 pillows and while in chair to keep LE up. -Podiatry will continue to follow while in house -Thank you for allowing us to take part of patient's care
--- NOTE | 2017-05-01 22:22 | PN ---
DATE: SUBJECTIVE: The patient is an 86-year-old, seen and examined, sitting in chair, seems to be comfortable. No nausea or vomiting. PHYSICAL EXAMINATION: VITAL SIGNS: Pulse 95, respiration 18, blood pressure 135/72. LUNGS: Bilateral good airflow. No rhonchi or crackle. HEART: S1 and S2 audible. ABDOMEN: Soft, nontender, obese. No hepatosplenomegaly. NEUROLOGIC: The patient is awake and alert, able to communicate. EXTREMITIES: Bilateral leg, +2 edema. LABORATORY DATA: There is no new lab available today. ASSESSMENT: 1. Bilateral leg edema. 2. cellulitis. 3. Hypertension. 4. Hypothyroidism. 5. Morbid obesity. PLAN: I will order for CBC and CMP for the morning. MARCEL stocking still pending, they are trying to get his size and that is not available yet. Encourage ambulation. We will follow up the patient. Wallace Caraballo MD
[2017-05-02] MEDS: Enoxaparin 30 mg Syringe SC SCH (06:06)
[2017-05-02] MEDS: Levothyroxine 25 MCG TAB PO SCH (06:06)
[2017-05-02 06:20] LABS: BASO # 0.03 K/mm3 (0.0-2.0); BASO % 0.4 % (0.0-3.0); EOS # 0.7 (0.0-0.7); EOS % 9.1 % (1.5-5.0); GRAN # 4.06 (1.4-6.5); HEMOGLOBIN 11.6 g/dL (14.0-18.0); LYMPH # 1.7 (1.2-3.4); LYMPH % 22.9 % (22.0-35.0); MEAN CELL VOLUME 93.4 fl (80.0-105.0); MEAN CORPUSCULAR HEMOGLOBIN 30.4 pg (25.0-35.0); MEAN CORPUSCULAR HGB CONC 32.6 g/dl (31.0-37.0); MEAN PLATELET VOLUME 9.9 fl (7.0-11.0); MONO % 13.6 % (1.0-6.0); RBC 3.81 10^6/uL (3.5-6.1); RED CELL DISTRIBUTION WIDTH 13.6 % (11.5-14.5); WHITE BLOOD COUNT 7.5 10^3/ul (4.5-11.0)
[2017-05-02 07:13] LABS: ALB/GLOB RATIO 1.2 (1.1-1.8); ALBUMIN 3.4 g/dL (3.0-4.8)
[2017-05-02] MEDS: Cefpodoxime (Vantin) 100 mg Tab PO SCH (09:20)
[2017-05-02] MEDS: Potassium Chloride 20 mEq ER Tab PO SCH (09:20)
[2017-05-02] MEDS: metOLazone 2.5 MG TAB PO SCH (09:21)
[2017-05-02] MEDS ORDERED: Potassium Chloride 20 mEq/15 ml LIQ UD PO STA (10:57)
[2017-05-03] MEDS: Enoxaparin 30 mg Syringe SC SCH (06:35)
[2017-05-03] MEDS: Levothyroxine 25 MCG TAB PO SCH (06:35)
[2017-05-03 07:31] LABS: ALB/GLOB RATIO 1.2 (1.1-1.8); ALBUMIN 3.7 g/dL (3.0-4.8); ALT/SGPT 46 U/L (7-56); AST/SGOT 32 U/L (17-59); BLOOD UREA NITROGEN 35 mg/dL (7-21); CALCIUM 9.5 mg/dL (8.4-10.5); GFR AFRICAN-AMERICAN > 60; GFR NON-AFRICAN AMERICAN 58
[2017-05-03] MEDS: Potassium Chloride 20 mEq ER Tab PO SCH (08:13)
--- NOTE | 2017-05-03 09:43 | CP.PCM.PN ---
<Raymundo Benito - Last Filed: 05/03/17 09:39> Subjective - Date & Time of Evaluation Date of Evaluation: 05/03/17 Time of Evaluation: 09:40 - Subjective Subjective: Podiatry Consult Note- Dr. Tucker/Dr. Buenrostro 86 y.o male with hx of LE swelling was consulted for lower extremity edema and cellulitis. Patient is seen resting comfortably in bed, in NAD, and AA0x3. Lower extremity FRANKIE compression is seen- c/d/i with no strikethrough. Patient denies n/v/sob/cp/chills or f. Patient has no pedal complaints at this time Objective - Vital Signs/Intake and Output Vital Signs (last 24 hours): Temp Pulse Resp BP Pulse Ox 98.4 F 62 18 120/71 96 05/02/17 16:33 05/02/17 16:33 05/02/17 16:33 05/02/17 16:33 05/02/17 16:33 - Medications Medications: Current Medications Enoxaparin Sodium (Lovenox) 30 mg SC 0600 ASHELY PRN Reason: Protocol Last Admin: 05/03/17 06:35 Dose: 30 mg Fluocinonide (Lidex 0.05% Cream) 0 gm TOP BID ASHELY PRN Reason: Protocol Last Admin: 05/02/17 17:43 Dose: 1 applic Furosemide (Lasix) 40 mg PO DAILY ASHELY PRN Reason: Protocol Levothyroxine Sodium (Synthroid) 25 mcg PO 0600 ASHELY PRN Reason: Protocol Last Admin: 05/03/17 06:35 Dose: 25 mcg Metolazone (Zaroxolyn) 2.5 mg PO DAILY ASHELY PRN Reason: Protocol Last Admin: 05/02/17 09:21 Dose: 2.5 mg Potassium Chloride (K-Dur 20 Meq Er Tab) 20 meq PO 0800 ASHELY PRN Reason: Protocol Last Admin: 05/03/17 08:13 Dose: 20 meq - Labs Labs: 05/02/17 06:10 05/03/17 06:30 - Constitutional Appears: Well, Non-toxic, No Acute Distress - Extremities Exam Additional comments: Vasc: DP and PT palpable, LE pitting edema 3+, temperature is WNL warm to cool from proximal knees to distal toes, CFT < 3 seconds to digits bilaterally Ortho: pain and tenderness with palpation to the entire LE, MM is 5/5 in all four compartments: dorsiflexion, inversion, eversion, and plantarflexion, no calf tenderness of palpation Neuro: protective and gross sensation intact Derm: Mild erythema noted to the entire LE bilaterally, red hyperpigmentation noted to the R anterior leg secondary to abrasion 40 years ago, no open ulceration noted to the bilaterally LE, drainage or weeping noted to the LE - Neurological Exam Neurological Exam: Alert, Awake, Oriented x3 - Psychiatric Exam Psychiatric exam: Normal Affect, Normal Mood Assessment and Plan - Assessment and Plan (Free Text) Assessment: 86 y.o male with hx of LE swelling with lower extremity edema and cellulitis- resolving Plan: -Patient examined and evaluated at bedside with attending Dr. Tucker -Vitals, labs, chart reviewed-leukocytosis and afebrile -LE cleansed with saline solution, pat dry with gauze, and compression with FRANKIE -c/w iv abx per primary -Patient instructed to keep legs elevate while in bed with 2-3 pillows and while in chair to keep LE up. -Podiatry will continue to follow while in house <Tez Tucker - Last Filed: 05/03/17 09:59> Objective - Vital Signs/Intake and Output Vital Signs (last 24 hours): Temp Pulse Resp BP Pulse Ox 98.4 F 62 18 120/71 96 05/02/17 16:33 05/02/17 16:33 05/02/17 16:33 05/02/17 16:33 05/02/17 16:33 - Medications Medications: Current Medications Enoxaparin Sodium (Lovenox) 30 mg SC 0600 ASHELY PRN Reason: Protocol Last Admin: 05/03/17 06:35 Dose: 30 mg Fluocinonide (Lidex 0.05% Cream) 0 gm TOP BID ASHELY PRN Reason: Protocol Last Admin: 05/02/17 17:43 Dose: 1 applic Furosemide (Lasix) 40 mg PO DAILY ASHELY PRN Reason: Protocol Levothyroxine Sodium (Synthroid) 25 mcg PO 0600 ASHELY PRN Reason: Protocol Last Admin: 05/03/17 06:35 Dose: 25 mcg Metolazone (Zaroxolyn) 2.5 mg PO DAILY ASHELY PRN Reason: Protocol Last Admin: 05/02/17 09:21 Dose: 2.5 mg Potassium Chloride (K-Dur 20 Meq Er Tab) 20 meq PO 0800 ASHELY PRN Reason: Protocol Last Admin: 05/03/17 08:13 Dose: 20 meq - Labs Labs: 05/02/17 06:10 05/03/17 06:30 Attending/Attestation - Attestation I have personally seen and examined this patient.: Yes I have fully participated in the care of the patient.: Yes I have reviewed all pertinent clinical information, including history, physical exam and plan: Yes
[2017-05-03] MEDS: metOLazone 2.5 MG TAB PO SCH (10:46)
[2017-05-03] MEDS ORDERED: Potassium Chloride 20 mEq ER Tab PO ONE (13:44)
[2017-05-04] MEDS: Enoxaparin 30 mg Syringe SC SCH (06:14)
[2017-05-04] MEDS: Levothyroxine 25 MCG TAB PO SCH (06:14)
[2017-05-04] MEDS: Potassium Chloride 20 mEq ER Tab PO SCH (08:35)
[2017-05-04] MEDS: metOLazone 2.5 MG TAB PO SCH (09:56)
[2017-05-04 10:01] LABS: HEMOGLOBIN 12.7 g/dL (14.0-18.0); MEAN CELL VOLUME 95.6 fl (80.0-105.0); MEAN CORPUSCULAR HEMOGLOBIN 31.3 pg (25.0-35.0); MEAN CORPUSCULAR HGB CONC 32.7 g/dl (31.0-37.0); MEAN PLATELET VOLUME 9.7 fl (7.0-11.0); RBC 4.06 10^6/uL (3.5-6.1); RED CELL DISTRIBUTION WIDTH 13.7 % (11.5-14.5); WHITE BLOOD COUNT 7.8 10^3/ul (4.5-11.0)
[2017-05-04 10:20] LABS: ALB/GLOB RATIO 1.2 (1.1-1.8); ALT/SGPT 43 U/L (7-56); AST/SGOT 30 U/L (17-59); BLOOD UREA NITROGEN 29 mg/dL (7-21); CALCIUM 9.9 mg/dL (8.4-10.5); GFR AFRICAN-AMERICAN > 60; GFR NON-AFRICAN AMERICAN 58
[2017-05-04] MEDS ORDERED: Potassium Chloride 20 mEq ER Tab PO ONE (12:00)
[2017-05-04 17:32] VITALS: O2SAT 94
[2017-05-05] MEDS: Enoxaparin 30 mg Syringe SC SCH (05:46)
[2017-05-05] MEDS: Levothyroxine 25 MCG TAB PO SCH (05:46)
[2017-05-05] MEDS: Potassium Chloride 20 mEq ER Tab PO SCH (08:06)
[2017-05-05] MEDS: metOLazone 2.5 MG TAB PO SCH ×2 (08:08→09:58)
--- NOTE | 2017-05-05 08:19 | PN ---
DATE: SUBJECTIVE: The patient is an 85-year-old seen and examined. Doing well. Sitting in chair. Seems to be comfortable. No nausea or vomiting. No diarrhea. PHYSICAL EXAMINATION: VITAL SIGNS: The patient is afebrile. Pulse 99, respirations 18, blood pressure 132/60. LUNGS: Bilateral good air flow. No rhonchi or crackles. HEART: S1 and S2 audible. No murmur. ABDOMEN: Soft, nontender. No rebound. No guarding. NEUROLOGIC: The patient is awake, alert, and communicative. LABORATORY DATA: WBC 7.5, hemoglobin 11.6, hematocrit 35.6, and platelets of 206. Chemistry: Sodium 141, potassium 3.0, chloride 96, CO2 37, BUN 41, creatinine 1.5, blood sugar 100. ASSESSMENT: 1. Bilateral leg cellulitis. 2. Bilateral leg edema. 3. Hypothyroidism. 4. Morbid obesity. PLAN: We will continue the patient on current medication. We will supplement his potassium. He is on Lasix q.12. I will decrease it to daily. We will intermittently monitor his electrolytes and possible discharge on Friday or Friday. Wallace Caraballo MD
[2017-05-05 11:30] VITALS: BP 127/79; PULSE 96; RESP 20; TEMP 98.3
--- NOTE | 2017-05-06 14:11 | DS ---
HISTORY OF PRESENT ILLNESS: The patient is 86 years old, who was admitted with bilateral leg swelling, right schaffer redness and rash. He was given IV antibiotics and diuretics. Workup showed hypothyroidism. Needed some subacute rehab, so was transferred to TCU for rehab. PHYSICAL EXAMINATION: GENERAL: He is awake, alert, oriented, and communicative. VITAL SIGNS: He is afebrile. Pulse 96, respirations 20, blood pressure 127/79. LUNGS: Bilateral good airflow. No rhonchi or crackle. HEART: S1, S2 audible. ABDOMEN: Soft, nontender. No rebound. No guarding. NEUROLOGIC: The patient is awake, alert, oriented, communicative. LABORATORY EXAM: Sodium 143, potassium 3.5, chloride 98, CO2 of 35. BUN 29, creatinine 1.2. Blood sugar of 90. ASSESSMENT: 1. Bilateral leg edema. 2. Right schaffer cellulitis, improved. 3. Hypothyroidism. 4. Morbid obesity. PLAN: The patient is being discharged home on Synthroid 25 mcg daily. He is on Lasix 40 mg three times a week and potassium when he takes Lasix and he will be following with Dr. Holder, as outpatient who is PCP. Wallace Caraballo MD
== END 2017-05-05 12:27 | disposition home or self-care (01) | DRG 556 ==
LOC: TRCU 14:44
PROVIDERS: ADMIT Internal Medicine; ATTEND Internal Medicine
PROC: F07Z9FZ Gait Training/Functional Ambulation Treatment using Assistive, Adaptive, Supportive or Protective Equipment (ICD-10-PCS; principal; 2017-04-29)
PROC: F08Z4FZ Home Management Treatment using Assistive, Adaptive, Supportive or Protective Equipment (ICD-10-PCS; 2017-04-29)
DX: R26.2 Difficulty in walking, not elsewhere classified (principal); L03.115 Cellulitis of right lower limb; J44.9 Chronic obstructive pulmonary disease, unspecified; E66.01 Morbid (severe) obesity due to excess calories; L03.116 Cellulitis of left lower limb; E03.9 Hypothyroidism, unspecified; I10 Essential (primary) hypertension; R21 Rash and other nonspecific skin eruption; Z68.38 Body mass index [BMI] 38.0-38.9, adult; E78.5 Hyperlipidemia, unspecified